=== PATIENT | female | born 1980 | race Caucasian/White ===

== ENCOUNTER 2017-05-23 09:49 | Emergency (ER) | payer SELFPAY ==
[~2017-05-23] VITALS: Ht 180.3 cm; Wt 90.6 kg
[~2017-05-23 09:49] MED LIST: MACROBID100 MG PO; NAPROSYN500 MG PO; PYRIDIUM100 MG PO
[2017-05-23 10:22] LABS: HEMATOCRIT 39.9 % (36.0-46.0); MCH 32.1 PG (29.0-34.0); MCHC 34.3 G/DL (30.0-36.0); MCV 93.4 FL (83-99); MEAN PLAT.VOLUME 9.7 uM^3 (9.5-12.4); PLATELET COUNT 172 K/uL (156-360); RBC DIS.WIDTH-CV 12.8 % (11.8-14.6); RED BLOOD COUNT 4.27 M/uL (3.80-5.20); WHITE BLOOD COUNT 4.6 K/uL (4.1-10.2)
[2017-05-23 10:43] LABS: QUANTITATIVE HCG < 4.0 MIU/ML
[2017-05-23 11:13] LABS: ANION GAP 7 MEQ/L (2-14); CHLORIDE 107 MEQ/L (99-109); POTASSIUM 3.8 MEQ/L (3.7-5.4); SAMPLE HEMOLYSIS CHECK 0; SAMPLE ICTERIC CHECK 0; SAMPLE LIPEMIA CHECK 0; SODIUM 139 MEQ/L (136-147); TOTAL BILIRUBIN 0.6 MG/DL (0.0-1.0)
[2017-05-23 11:19] LABS: ALKALINE PHOSPHATASE 95 IU/L (3-129); GFR ESTIMATE (CALCULATED) > 59 mL/min/; GLUCOSE 104 mg/dL (70-99); LIPASE 14 U/L (1.0-51.0); UREA NITROGEN (BUN) 12 mg/dL (9-23)
[2017-05-23 11:23] LABS: ADD MIUA? YES; BILIRUBIN NEGATIVE; BLOOD SMALL; COLOR YELLOW ((YELLOW)); GLUCOSE (STRIP) NEGATIVE; KETONES NEGATIVE; LEUKOCYTES NEGATIVE; NITRITE NEGATIVE; PROTEIN (STRIP) 30; SPECIFIC GRAVITY 1.036 (1.000-1.030)
[2017-05-23 11:29] LABS: BACTERIA NONE SEEN /HPF; RED BLOOD CELLS 0-5 /HPF (0-5); UCUL ADDED? NO; WHITE BLOOD CELLS 0-5 /HPF (0-5)
[2017-05-23 11:37] LABS: EPITHELIAL CELLS 1+ /HPF; MUCUS NONE SEEN /LPF
[2017-05-23] MEDS ORDERED: ZOFRAN ODT4 MG PO (12:44)
[2017-05-23] MEDS ORDERED: ZANTAC150 MG PO (12:44)
[2017-05-23 13:13] VITALS: BP 146/86
== END 2017-05-23 13:13 | disposition home or self-care (01) ==
LOC: EME 09:49
DX: R10.9 Unspecified abdominal pain (principal); R11.0 Nausea; Z98.51 Tubal ligation status; R00.0 Tachycardia, unspecified
CPT/HCPCS: 80053; 81003; 83690; 84702; 85027; 99281; 99284

== ENCOUNTER 2017-09-13 16:46 | Emergency (ER) | payer OTHER ==
[~2017-09-13] VITALS: Ht 182.9 cm; Wt 104.0 kg
[~2017-09-13 16:46] MED LIST changes: +ZANTAC150 MG PO; +ZOFRAN ODT4 MG PO
[2017-09-13] MEDS ORDERED: FLEXERIL10 MG PO (18:52)
[2017-09-13] MEDS ORDERED: NAPROSYN500 MG PO (18:52)
[2017-09-13 19:22] VITALS: BP 110/69
== END 2017-09-13 19:23 | disposition home or self-care (01) ==
LOC: EME 16:46
DX: S46.912A Strain of unspecified muscle, fascia and tendon at shoulder and upper arm level, left arm, initial encounter (principal); M62.838 Other muscle spasm; X50.1XXA Overexertion from prolonged static or awkward postures, initial encounter; Y93.72 Activity, wrestling; Y93.83 Activity, rough housing and horseplay; B19.20 Unspecified viral hepatitis C without hepatic coma; Z98.51 Tubal ligation status
CPT/HCPCS: 72040; 73030; 99281; 99284; J1885